=== PATIENT | male | born 1985 | race Caucasian/White ===

== ENCOUNTER 2020-06-23 21:38 | Emergency (ER) | payer MEDICARE ==
[~2020-06-23] VITALS: Ht 182.9 cm; Wt 118.2 kg
[2020-06-23 21:41] VITALS: Ht 182.9 cm; Wt 118.2 kg
[2020-06-24] MEDS ORDERED: TORADOL10 MG PO (00:43)
[2020-06-24 02:02] VITALS: BP 165/99
== END 2020-06-24 02:53 | disposition home or self-care (01) ==
LOC: D.ER 21:38
DX: S80.211A Abrasion, right knee, initial encounter (principal); M54.2 Cervicalgia; M25.561 Pain in right knee; R51.9 Headache, unspecified; R68.84 Jaw pain; Y04.2XXA Assault by strike against or bumped into by another person, initial encounter; Y93.9 Activity, unspecified; Y92.9 Unspecified place or not applicable; I10 Essential (primary) hypertension; Z72.0 Tobacco use